=== PATIENT | female | born 1960 | race Caucasian/White ===

== ENCOUNTER 2018-01-16 12:07 | Outpatient (CLI) | payer BC ==
[~2018-01-16] VITALS: Ht 157.5 cm; Wt 69.7 kg
[~2018-01-16 12:07] MED LIST: ALEVE LIQCAPS PO; FLEXERIL5 MG PO; MOTRIN 200200 MG/TAB PO; MULTI VITAMINS1 TAB PO; NORCO 325 MG-51 TAB PO; SYNTHROID0.112 MG/T PO; TYLENOL 500MG500 MG PO
[2018-01-16 13:35] VITALS: BP 150/92; PULSE 75
[2018-01-16 13:38] VITALS: BP 150/94; PULSE 75
[2018-01-16 13:50] VITALS: BP 148/75; PULSE 75
[2018-01-16 14:05] VITALS: BP 132/94; PULSE 76
[2018-01-16 14:20] VITALS: BP 128/92; PULSE 75
[2018-01-16 14:50] VITALS: BP 141/83; PULSE 75
== END 2018-01-16 15:47 | disposition home or self-care (01) ==
LOC: COL.RAD 12:07
DX: M46.86 Other specified inflammatory spondylopathies, lumbar region (principal); R20.0 Anesthesia of skin
CPT/HCPCS: Q9965